=== PATIENT | female | born 1985 | race Caucasian/White ===

== ENCOUNTER 2017-12-16 18:07 | Emergency (ER) | payer MEDICAID ==
[~2017-12-16] VITALS: Ht 165.1 cm; Wt 63.5 kg
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
--- NOTE | 2017-12-16 18:55 | NUR ---
C-COLLAR APPLIED PER LANDRY MANCINI
--- NOTE | 2017-12-16 19:05 | NUR ---
URINE OBTAINED AND SENT TO LAB.
--- NOTE | 2017-12-16 19:08 | NUR ---
REPORT GIVEN TO DONALD HORTON FOR [facility]. Addendum: 12/16/17 at 1915 by DORCAS REPORT GIVEN TO GEORGE LAZO FOR [facility].
[2017-12-16] MEDS ORDERED: TDAP [DIPH/PERTUSSIS/TET] 0.5 ML VIAL IM ONE ×2 (20:30→20:32)
--- NOTE | 2017-12-16 20:43 | NUR ---
ASSUMED D/C CARE OF PT AT THIS TIME ON BEHALF OF PRIMARY NURSE ED. Patient discharged to home in stable condition. Written and verbal after care instructions given. Patient verbalizes understanding of instruction. NO S/S OF DISTRESS NOTED AT THIS TIME. RESP EVEN AND UNLABORED. Ambulatory with a steady gait
[2017-12-16 20:45] VITALS: BP 114/67
== END 2017-12-16 20:46 | disposition home or self-care (01) ==
LOC: ER 18:14
DX: S16.1XXA Strain of muscle, fascia and tendon at neck level, initial encounter (principal); S00.01XA Abrasion of scalp, initial encounter; Z88.0 Allergy status to penicillin; Z88.6 Allergy status to analgesic agent; F10.10 Alcohol abuse, uncomplicated; Z23 Encounter for immunization; Z88.8 Allergy status to other drugs, medicaments and biological substances; W22.8XXA Striking against or struck by other objects, initial encounter; Y93.89 Activity, other specified; Y92.89 Other specified places as the place of occurrence of the external cause; Y99.8 Other external cause status
CPT/HCPCS: 70450; 72125; 84703; 90471; 90715; 99285; A4606; L0172; Z7610

== ENCOUNTER 2021-06-19 22:40 | Emergency (ER) | payer MEDICAID, OTHER ==
[~2021-06-19] VITALS: Ht 157.5 cm; Wt 59.0 kg
--- NOTE | 2021-06-19 23:15 | NUR ---
CALLED [facility] INCIDENT NUMBER [id number] PT DID NOT WANT TO PRESS CHARGES.
[2021-06-19] MEDS ORDERED: HYDROCODONE/APAP 5/325MG TABLET ONE (23:20)
[2021-06-19] MEDS ORDERED: HYDROCODONE/APAP 5/325MG TABLET PO ONE (23:30)
[2021-06-20 00:14] VITALS: BP 126/80
--- NOTE | 2021-06-20 00:14 | NUR ---
Patient discharged to home in stable condition. Written and verbal after care instructions given. Patient verbalizes understanding of instruction.
== END 2021-06-20 00:17 | disposition home or self-care (01) ==
LOC: ER 22:45
DX: S13.4XXA Sprain of ligaments of cervical spine, initial encounter (principal); S00.83XA Contusion of other part of head, initial encounter; R68.84 Jaw pain; Z88.0 Allergy status to penicillin; Z88.6 Allergy status to analgesic agent; Y08.89XA Assault by other specified means, initial encounter; Y93.89 Activity, other specified; Y92.89 Other specified places as the place of occurrence of the external cause; Y99.8 Other external cause status
CPT/HCPCS: 70450-TC; 70486-TC; 72125-TC

== ENCOUNTER 2022-05-04 14:36 | Emergency (ER) | payer OTHER ==
[~2022-05-04] VITALS: Ht 160 cm; Wt 66.2 kg
[2022-05-04 14:50] VITALS: BP 128/74
--- NOTE | 2022-05-04 16:39 | NUR ---
Patient discharged to home in stable condition. Written and verbal after care instructions given. Patient verbalizes understanding of instruction.
== END 2022-05-04 16:40 | disposition home or self-care (01) ==
LOC: ER 14:40
DX: S97.121A Crushing injury of right lesser toe(s), initial encounter (principal); Z88.0 Allergy status to penicillin; Z88.6 Allergy status to analgesic agent; W01.0XXA Fall on same level from slipping, tripping and stumbling without subsequent striking against object, initial encounter; Y93.89 Activity, other specified; Y92.89 Other specified places as the place of occurrence of the external cause; Y99.8 Other external cause status
CPT/HCPCS: 73660-TC